=== PATIENT | male | born 1985 | race Caucasian/White ===

== ENCOUNTER → 2019-09-13 | Outpatient (CLI) | payer BC, OTHER ==
[~2019-09-13] MED LIST: HYDACE5 PO; INCARCERATION; Keflex500 MG PO; Naprosyn500 MG PO; Percocet 5-3251 EACH PO; SILSUL1TC TOP; Veetids 500500 MG PO
== END | disposition home or self-care (01) ==
LOC: LAB 15:25 → LAB SHORT 15:25
DX: L08.9 Local infection of the skin and subcutaneous tissue, unspecified (principal)
CPT/HCPCS: 87070; 87075; 87077; 87147; 87186; 87205

== ENCOUNTER 2021-02-01 10:01 | Emergency (ER) | payer OTHER ==
[~2021-02-01] VITALS: Ht 182.9 cm; Wt 86.2 kg
== END 2021-02-01 11:40 | disposition home or self-care (01) ==
LOC: ER 10:01
DX: S06.0X0A Concussion without loss of consciousness, initial encounter (principal); S01.112A Laceration without foreign body of left eyelid and periocular area, initial encounter; S40.212A Abrasion of left shoulder, initial encounter; S60.512A Abrasion of left hand, initial encounter; S60.511A Abrasion of right hand, initial encounter; F17.210 Nicotine dependence, cigarettes, uncomplicated; V29.9XXA Motorcycle rider (driver) (passenger) injured in unspecified traffic accident, initial encounter
CPT/HCPCS: 12013; 99283-25

== ENCOUNTER 2024-03-02 07:07 | Emergency (ER) | payer SELFPAY ==
[~2024-03-02] VITALS: Ht 182.9 cm; Wt 97.5 kg
[2024-03-02] MEDS ORDERED: Prednisone20 MG PO (09:48)
[2024-03-02] MEDS ORDERED: Zovirax800 MG PO (09:48)
[2024-03-02 10:30] VITALS: BP 112/86
== END 2024-03-02 10:32 | disposition home or self-care (01) ==
LOC: ER 07:07
DX: G51.0 Bell's palsy (principal)
CPT/HCPCS: 99283